=== PATIENT | male | born 1935 | race Caucasian/White ===

== ENCOUNTER 2019-04-27 19:10 | Inpatient (IN) | payer MEDICARE ==
[2019-04-27] MEDS ORDERED: IV NS 0.9% 1,000 ML BAG IV ONE (20:00)
[2019-04-27] MEDS ORDERED: HYDROCODONE/APAP 5/325MG 1 EACH TABLET PO PRN (21:00)
[2019-04-27] MEDS ORDERED: ZOLPIDEM TARTRATE 5 MG TABLET PO PRN (21:00)
[2019-04-27] MEDS ORDERED: MAG HYDROX/AL HYDROX/SIMETH 30 ML UDC PO PRN (21:00)
[2019-04-27] MEDS ORDERED: ACETAMINOPHEN 325 MG TABLET PO PRN (21:00)
[2019-04-27] MEDS ORDERED: Z GUARD REMEDY 2 OZ OINT TP PRN (21:00)
[2019-04-27] MEDS ORDERED: MAGNESIUM HYDROXIDE 30 ML UDC PO PRN (21:00)
[2019-04-27] MEDS ORDERED: ONDANSETRON HCL/PF 4 MG/2 ML VIAL IVP PRN (21:00)
[2019-04-27] MEDS: IV NS 0.9% 1,000 ML IV SCH (22:28)
[2019-04-28] MEDS: IV NS 0.9% 1,000 ML IV SCH ×3 (07:59→15:21)
[2019-04-28] MEDS: Magnesium 1GM/D5W 100ML PREMIX 100 ML IV SCH ×2 (12:21→13:22)
== END 2019-04-28 16:00 | disposition home or self-care (01) | DRG 641 ==
DX: E86.9 Volume depletion, unspecified (principal); E44.1 Mild protein-calorie malnutrition; N17.9 Acute kidney failure, unspecified; D64.9 Anemia, unspecified; R73.9 Hyperglycemia, unspecified; E88.09 Other disorders of plasma-protein metabolism, not elsewhere classified; Z86.61 Personal history of infections of the central nervous system; E83.42 Hypomagnesemia; E86.0 Dehydration